=== PATIENT | male | born 1995 | race Hispanic/Latino ===

== ENCOUNTER 2021-08-05 11:29 | Emergency (ER) | payer BC, OTHER ==
[~2021-08-05] VITALS: Ht 182.9 cm; Wt 108.9 kg
[~2021-08-05 11:29] MED LIST: BACTRIM DS TAB1 EACH PO; BACTRIM DS1 EA PO; FLAGYL250 MG PO; LEVSIN0.125 M1 PO; PANTOPRAZOLE SO40 MG PO; ULTRACET1 EA PO; ULTRAM 50MG50 MG PO; Z.0.DICYCLOMINE HCL1 PO
[2021-08-05] MEDS ORDERED: SODIUM CHLORIDE 0.9% 1000ML 1,000 ML IV STA (11:58)
[2021-08-05] MEDS ORDERED: KETOROLAC TROMETHAMINE 30 MG/ML VIAL IV STA (11:58)
[2021-08-05] MEDS ORDERED: DIAZEPAM 2 MG TAB PO NR (12:00)
[2021-08-05 12:09] LABS: BASOPHILS # (AUTO) 0.1 (0.0-0.1); BASOPHILS % 0.8 % (0.0-1.0); EOSINOPHILS # (AUTO) 0.1 (0.0-0.4); EOSINOPHILS % 1.4 % (0.0-6.0); HEMATOCRIT 45.2 % (38.2-49.6); HEMOGLOBIN 15.4 g/dL (14.0-18.0); LYMPHOCYTES # (AUTO) 1.8 (1.0-3.2); LYMPHOCYTES % 24.9 % (18.0-39.1); MEAN CORPUSCULAR HEMOGLOBIN 28.9 pg (28-32); MEAN CORPUSCULAR HGB CONC 34.1 g/dL (31-35); MEAN CORPUSCULAR VOLUME 84.8 fL (81-99); MONOCYTES # (AUTO) 0.7 (0.2-0.8); MONOCYTES % 9.7 % (4.4-11.3); NEUTROPHILS # (AUTO) 4.5 (2.1-6.9); NEUTROPHILS % 62.9 % (38.7-80.0); PLATELET COUNT 295 x10e3/uL (140-360); RED BLOOD COUNT 5.33 x10e6/uL (4.3-5.7); RED CELL DISTRIBUTION WIDTH 12.7 % (11.7-14.4)
[2021-08-05 12:15] LABS: CLARITY,URINE CLEAR (CLEAR); COLOR,URINE YELLOW (YELLOW); KETONES,URINE NEGATIVE (NEGATIVE); LEUKOCYTE ESTERASE ,URINE NEGATIVE (NEGATIVE); NITRITE,URINE NEGATIVE (NEGATIVE); PROTEIN,URINE DIPSTICK NEGATIVE (NEGATIVE); URINE UROBILINOGEN 0.2 mg/dL (0.2 - 1)
[2021-08-05] MEDS ORDERED: KETOROLAC TROMETHAMINE 30 MG/ML VIAL IV ONE (12:15)
[2021-08-05 12:18] LABS: BACTERIA,URINE FEW /HPF; EPITHELIAL CELLS,URINE FEW /LPF; RBC,URINE 0-5 /HPF (0-5); WBC,URINE (MAN) 0-5 /HPF (0-5)
[2021-08-05 12:21] LABS: ALBUMIN 3.9 g/dL (3.5-5.0); ALBUMIN/GLOBULIN RATIO 1.1 (0.8-2.0); CALCIUM 9.2 mg/dL (8.4-10.2)
[2021-08-05] MEDS ORDERED: HYDROCODONE/APAP 7.5MG-325MG 1 EA TAB PO ONE (14:15)
[2021-08-05] MEDS ORDERED: COLACE100 MG PO (14:21)
[2021-08-05] MEDS ORDERED: HYDROCODON-ACE1 EA12 PO (14:21)
== END 2021-08-05 14:30 | disposition home or self-care (01) ==
LOC: ER 11:47
DX: R07.89 Other chest pain (principal); S22.32XA Fracture of one rib, left side, initial encounter for closed fracture; M54.50 Low back pain, unspecified
CPT/HCPCS: 36415; 74176; 80053; 81001; 85025; 99284; J1885; J7030

== ENCOUNTER 2024-02-05 12:48 | Emergency (ER) | payer OTHER ==
[~2024-02-05] VITALS: Ht 210.8 cm; Wt 108.9 kg
[~2024-02-05 12:48] MED LIST changes: +COLACE100 MG PO; +HYDROCODON-ACE1 EA12 PO
[2024-02-05 12:52] VITALS: TEMP 98
[2024-02-05 14:05] VITALS: PULSE 89; RESP 16; O2SAT 98
[2024-02-05] MEDS ORDERED: NAPROXEN250 MG PO (14:14)
== END 2024-02-05 14:44 | disposition home or self-care (01) ==
LOC: ER 13:11
DX: S13.4XXA Sprain of ligaments of cervical spine, initial encounter (principal); R42 Dizziness and giddiness; V53.5XXA Driver of pick-up truck or van injured in collision with car, pick-up truck or van in traffic accident, initial encounter; Y92.488 Other paved roadways as the place of occurrence of the external cause
CPT/HCPCS: 70450; 72100; 72125; 99283

== ENCOUNTER 2024-07-12 22:37 | Emergency (ER) | payer OTHER ==
[~2024-07-12] VITALS: Ht 210.8 cm; Wt 108.9 kg
[~2024-07-12 22:37] MED LIST changes: +NAPROXEN250 MG PO
[2024-07-12 23:48] VITALS: PULSE 84; RESP 18; TEMP 98.4
[2024-07-13 00:45] LABS: BASOPHILS # (AUTO) 0.1 (0.0-0.1); BASOPHILS % 1.2 % (0.0-1.0); EOSINOPHILS # (AUTO) 0.1 (0.0-0.4); EOSINOPHILS % 1.8 % (0.0-6.0); HEMATOCRIT 44.9 % (38.2-49.6); LYMPHOCYTES # (AUTO) 2.6 (1.0-3.2); LYMPHOCYTES % 40.1 % (18.0-39.1); MEAN CORPUSCULAR HEMOGLOBIN 29.7 pg (28-32); MEAN CORPUSCULAR HGB CONC 35.6 g/dL (31-35); MEAN CORPUSCULAR VOLUME 83.3 fL (81-99); MONOCYTES # (AUTO) 0.4 (0.2-0.8); MONOCYTES % 5.9 % (4.4-11.3); NEUTROPHILS # (AUTO) 3.3 (2.1-6.9); NEUTROPHILS % 50.5 % (38.7-80.0); PLATELET COUNT 297 x10e3/uL (140-360); RED BLOOD COUNT 5.39 x10e6/uL (4.3-5.7); RED CELL DISTRIBUTION WIDTH 12.4 % (11.7-14.4); WHITE BLOOD COUNT 6.56 x10e3/uL (4.8-10.8)
[2024-07-13 01:08] LABS: ALBUMIN 4.8 g/dL (3.5-5.0); ALBUMIN/GLOBULIN RATIO 1.5 (0.8-2.0); ANION GAP 17.4 mmol/L (8-16); BILIRUBIN,TOTAL 0.4 mg/dL (0.2-1.2); CALCIUM 9.7 mg/dL (8.4-10.2); CREATININE, SERUM 0.96 mg/dL (0.72-1.25); POTASSIUM 4.4 mmol/L (3.5-5.1); TOTAL PROTEIN 7.9 g/dL (6.5-8.1)
[2024-07-13] MEDS: ONDANSETRON HCL INJ 2MG/ML 2ML 2 MG/ML VIAL IV STA (01:23)
[2024-07-13 01:57] LABS: INR 0.93
[2024-07-13 01:58] LABS: PARTIAL THROMBOPLASTIN TIME 29.6 seconds (23.8-35.5)
[2024-07-13] MEDS ORDERED: SODIUM CHLORIDE 0.9% 100 ML ONE (02:20)
[2024-07-13] MEDS ORDERED: IOPAMIDOL 370 MG/ML 100 ML INFUS..BTL INJ ONE (02:20)
[2024-07-13] MEDS ORDERED: ONDANSETRON ODT4 MG SL (03:10)
[2024-07-13] MEDS ORDERED: PANTOPRAZOLE SO40 MG PO (03:10)
[2024-07-13 04:11] VITALS: BP 126/73; PULSE 80; RESP 17; TEMP 98.1; O2SAT 100
== END 2024-07-13 03:45 | disposition home or self-care (01) ==
LOC: ER 07-13 00:57
DX: K92.0 Hematemesis (principal); Z87.19 Personal history of other diseases of the digestive system
CPT/HCPCS: 36415; 74174; 80053; 83690; 85025; 85610; 85730; 99284; J2405; J2470; J7050; Q9967